=== PATIENT | male | born 1955 | race Hispanic/Latino ===

== ENCOUNTER 2016-12-27 05:49 | Inpatient (IN) | payer BC ==
--- NOTE | 2016-12-20 09:56 | Anesthesia Consultation ---
Anesthesia Consult and Med Hx Date of service: 12/20/16 - Airway Anesthetic Teeth Evaluation: Good ROM Head & Neck: Adequate Mental/Hyoid Distance: Adequate Mallampati Class: Class II Intubation Access Assessment: Probably Good - Pulmonary Exam CTA: Yes - Cardiac Exam Cardiac Exam: RRR - Pre-Operative Health Status ASA Pre-Surgery Classification: ASA3 Proposed Anesthetic Plan: General - Pulmonary Hx Smoking: Yes Hx Sleep Apnea: No ([facility] PRE SCREEN HIGH RISK) - Cardiovascular System Hx Hypertension: Yes Hx Peripheral Vascular Disease: Yes (on aspirin and plavix for blood clots. stopped since 12/13) - Central Nervous System Hx Back Pain: Yes - Endocrine Hx Non-Insulin Dependent Diabetes: Yes - Other Systems Hx Alcohol Use: No (ALCOHOL IN THE PAST) Hx Cancer: No
[2016-12-20 10:01] LABS: Basophils % (Auto) 0.7 % (0.0-1.8); Hematocrit 43.4 % (35.5-45.6); Hemoglobin 14.4 gm/dl (11.8-15.2); Mean Corpuscular HGB Conc 33 % (32-34); Mean Corpuscular Hemoglobin 32 pg (28-32); Mean Corpuscular Volume 95 fl (84-94); Platelet Count 248 K/mm3 (140-440); Red Blood Count 4.57 M/mm3 (3.65-5.03); Red Cell Distribution Width 13.9 % (13.2-15.2); White Blood Count 10.1 K/mm3 (4.5-11.0)
[2016-12-20 10:21] LABS: Alanine Aminotransferase 27 units/L (7-56); Albumin/Globulin Ratio 1.2 %; Alkaline Phosphatase 58 units/L (35-129); Anion Gap 20 mmol/L; Blood Urea Nitrogen 23 mg/dL (9-20); Calcium 9.1 mg/dL (8.4-10.2); Carbon Dioxide 22 mmol/L (22-30); Chloride 99.6 mmol/L (98-107); Glucose 89 mg/dL (75-100); Potassium 4.8 mmol/L (3.6-5.0); Sodium 137 mmol/L (137-145); Total Protein 7.3 g/dL (6.3-8.2)
[2016-12-20 10:28] LABS: INR 0.84 (0.87-1.13); Partial Thromboplastin Time 29.5 Sec. (24.2-36.6)
[2016-12-27] MEDS ORDERED: NEURONTIN PO NR (07:00)
[2016-12-27] MEDS ORDERED: PEPCID PO NR (07:00)
[2016-12-27] MEDS ORDERED: VERSED IV NR (07:00)
[2016-12-27] MEDS: NACL 0.9% 1000 ML 1,000 ML IV SCH ×3 (07:10→23:46)
[2016-12-27] MEDS ORDERED: DEPO-MEDROL ONE (07:21)
[2016-12-27] MEDS ORDERED: NACL 0.9% 250ML 250 ML ONE (07:22)
[2016-12-27] MEDS ORDERED: MARCAINE 0.5% 30 ML INFILTRATI ONE (07:22)
[2016-12-27] MEDS ORDERED: NACL P/F VIAL (10 ML) 10 ML ONE (07:22)
[2016-12-27] MEDS ORDERED: GELFOAM TP ONE ×3 (07:22→08:00)
[2016-12-27] MEDS ORDERED: THROMBIN (BOVINE) TP ONE ×3 (07:22→08:37)
[2016-12-27] MEDS ORDERED: BACITRACIN ONE (07:22)
[2016-12-27] MEDS ORDERED: XYLOCAINE 2%/ EPI 1:200,000 INFILTRATI ONE (07:27)
[2016-12-27] MEDS ORDERED: DILAUDID ONE ×2 (07:36→12:10)
[2016-12-27] MEDS ORDERED: DIPRIVAN 10 MG/ML IV ONE (07:36)
[2016-12-27] MEDS ORDERED: ZEMURON IV ONE (07:39)
[2016-12-27] MEDS ORDERED: ROBINUL ONE ×2 (07:39→09:54)
[2016-12-27] MEDS ORDERED: XYLOCAINE MPF 2% ONE (07:39)
--- NOTE | 2016-12-27 07:47 | Anesthesia Day of Surgery ---
Anesthesia Day of Surgery - Day of Surgery Patient Examined: Yes Patient H&P Reviewed: Yes Patient is NPO: Yes
[2016-12-27] MEDS ORDERED: NACL 0.9% 250ML IR ONE (08:00)
[2016-12-27] MEDS ORDERED: BACITRACIN IR ONE (08:00)
[2016-12-27] MEDS ORDERED: MARCAINE 0.5% INFILTRATI ONE (08:00)
[2016-12-27] MEDS ORDERED: XYLOCAINE 1%/ EPI 1:100,000 INFILTRATI ONE (08:00)
[2016-12-27] MEDS ORDERED: NACL 0.9% IR ONE (08:00)
[2016-12-27] MEDS ORDERED: ANCEF/STERILE WATER 2 GM/20 ML IV NR (08:01)
[2016-12-27] MEDS ORDERED: ANCEF ONE ×2 (08:32)
[2016-12-27] MEDS ORDERED: CALCIUM CHLORIDE IV ONE (08:37)
[2016-12-27] MEDS ORDERED: DECADRON ONE (08:40)
[2016-12-27] MEDS ORDERED: ZOFRAN ONE (08:40)
[2016-12-27] MEDS ORDERED: PROAIR IH ONE (08:56)
[2016-12-27] MEDS ORDERED: ANCEF/STERILE WATER 2 GM/20 ML 2 GM/20 ML SYRINGE IV SCH (09:15)
[2016-12-27] MEDS ORDERED: NACL 0.9% 1000 ML 1,000 ML ONE (09:19)
[2016-12-27] MEDS ORDERED: NEOSTIGMINE ONE (09:54)
[2016-12-27] MEDS ORDERED: NEO SYNEPHRINE ONE (09:57)
[2016-12-27] MEDS ORDERED: NACL 0.9% 100 ML ONE (09:57)
--- NOTE | 2016-12-27 10:31 | Operative Report ---
Operative Report Operative Report: DATE OF PROCEDURE: 12/27/2016 PREOPERATIVE DIAGNOSIS: Lumbar stenosis with neurogenic claudication POSTOPERATIVE DIAGNOSIS: Same OPERATIVE PROCEDURE: 1. L4 5 bilateral lumbar laminectomy for decompression of thecal sac 2. L4 5 facet arthrodesis using autograft and detox SURGEON: Jairon Ritter MD RIP/MOULD OPERATOR: Christianne COLE ANESTHESIA: General endotracheal anesthesia EBL: 100 mL INDICATIONS FOR PROCEDURE: This is a 61-year-old male who presented to the office with a chief complaint of bilateral leg and back pain. Pain radiated down the legs along the lateral aspect. Pain was worse with ambulation improved with rest and bending forward. Physical exam he was neurologically intact. MRI of the lumbar spine revealed lumbar stenosis at the L4 5 level due to facet hypertrophy and ligamentum flavum enfolding. FINDINGS: Significant bilateral facet joint hypertrophy and thickeneng of ligamentum flavum causing significant compression of the thecal sac. PROCEDURE: Patient was brought to the operating room and on his gurney underwent general endotracheal anesthesia without complication. After lines replaced as turned in the prone position and secured. The lower lumbar spine was then prepped and draped in sterile fashion. After appropriate timeout was taken skin was altered 1% lidocaine with epinephrine. Fluoroscopy was used to identify the appropriate level of the incision in the skin was opened using a 10 blade. The paraspinous muscles were reflected bilaterally using monopolar cautery. After retractors were placed and the wound and the L4 5 interspaces were identified. High-speed drill was used to create the initial laminotomy defect and the ligamentum flavum was divded and the thecal sac identified. Thecal sac was then decompressed removing the entire lamina of L4. Attention was turned to the contralateral side which was also decompressed. The facet joints were noted to be very mobile intraoperatively and field with ligament edematous tissue. This tissue was removed and the bone from the facet joint mixed with detox and platelet rich plasma was placed inside the facet joint for arthrodesis. This was to prevent a need for a fusion in the future. Hemostasis was obtained, Gelfoam pledgets soaked in Depo-Medrol were placed over the nerve roots. Our attention was turned to closing. Paraspinous muscles were reapproximated using 0 Vicryl for the muscle fascia and finally 4- 0 Monocryl for the skin. The lap sponge and needle count was correct at the end of the procedure, the patient tolerated the procedure well and was taken to the recovery room extubated and in good condition.
--- NOTE | 2016-12-27 10:51 | Post Anesthesia Evaluation ---
- Post Anesthesia Evaluation Patient Participated: Yes Airway Patent: Yes Stable Respiratory Function: Yes Nausea/Vomiting: No Temp > 96.8F: Yes Pain Manageable: Yes Adequeate Hydration: Yes Anesthesia Complications: No Block Receding Appropriately: Not Applicable Patient on Ventilator: No
[2016-12-27] MEDS ORDERED: PERCOCET 5/325 ONE (11:24)
[2016-12-27] MEDS ORDERED: FLEXERIL PO PRN (11:30)
[2016-12-27] MEDS ORDERED: AMBIEN PO PRN (11:30)
[2016-12-27] MEDS ORDERED: CATAPRES PO PRN (11:30)
[2016-12-27] MEDS ORDERED: BENADRYL PO PRN (11:30)
[2016-12-27] MEDS ORDERED: CEPACOL X STRENGTH MM PRN (11:30)
[2016-12-27] MEDS ORDERED: NARCAN 0.4 MG/1 ML IV PRN (11:30)
[2016-12-27] MEDS ORDERED: NORCO 5/325 PO PRN (11:30)
[2016-12-27] MEDS ORDERED: D50W (25GM) Syringe IV PRN (11:30)
[2016-12-27] MEDS ORDERED: TYLENOL PO PRN (11:30)
[2016-12-27] MEDS ORDERED: ZOFRAN IV PRN (11:30)
[2016-12-27] MEDS ORDERED: REGLAN IV PRN (11:30)
[2016-12-27] MEDS ORDERED: PHENERGAN PR PRN (11:30)
[2016-12-27] MEDS: PERCOCET 5/325 PO PRN (11:36)
[2016-12-27] MEDS: DILAUDID IV PRN ×4 (12:08→18:13)
--- NOTE | 2016-12-27 12:31 | Admit Criteria Form ---
Admission Criteria Documentation: AMBULATORY SURGERY EXCEPTION CRITERIA Ambulatory Surgery Exception Criteria ( Place 'X' for any and all applicable criteria): Surgery or procedure performed on ambulatory basis may require inpatient stay for[A] ANY ONE of the following(1)(2)(3)(4)(5)(6)(7)(8)(9): [X] I. A preoperative situation, condition, or finding that warrants inpatient stay as indicated by ANY ONE of the following: [] a) Inpatient care needed because of severity of a disease or condition rather than the surgery (eg, severe cardiac or respiratory disease, severe infection) (15) (16 ) (17) (18) [] b) Emergent procedure (eg, angioplasty for acute ischemia)(19) [] c) Complex surgical approach or situation as indicated by ANY ONE of the following(3): [] i) Open approach needed instead of usual endoscopic, transcatheter, or other less invasive procedure [] ii) Difficult approach because of previous operation [] iii) Airway monitoring required after open neck procedures(20)(21) [] iv) Large mass requiring unusually extensive dissection [] v) Additional complicating feature requiring inpatient care (eg, drain management)(22(23): [X] d) Major surgery in a pt with high anesthetic risk as indicated by ANY ONE of the following (2)(3)(5)(7)(8): [X] i) ASA risk class III or higher (severe systemic disease impairing function) [D] [] ii) Advanced age (eg, older than 85 years)(14)(24) [] iii) Symptomatic heart failure(25) [] iv) Symptomatic asthma or COPD(8)(21) [] v) Morbid obesity with hemodynamic or respiratory problems(20)( 21)(26)(27) [] vi) Obstructive sleep apnea(20)(21) [] vii) Former premature infants who are younger than 60 weeks [] viii) High risk for severe postoperative abnormalities (eg, severe postoperative hypocalcemia after parathyroidectomy for severe hyperparathyroidism)(27)( 28) [] ix) Unstable angina(25) [] e) Drug-related risk requiring inpatient stay as indicated by ANY ONE of the following(5)(10)(14)(32)(33) [] i) Procedure requires discontinuing drugs or other therapy (eg , antiarrhythmic medication, antiseizure medication), which necessitates inpatient observation or treatment.(18)(31) [] ii) Major surgery and high risk drug use as indicated by ANY ONE of the following: [] 1) Active abuse of cocaine or similar drug [] 2) Monoamine oxidase inhibitor use [] 3) Other drug identified as posing risk [] f) Inadequate outpatient care situation as indicated by ANY ONE of the following(5)(10)(14)(32)(33) [] i) Patient lives remote from medical facility and procedure has urgent complication potential, and temporary nearby residence cannot be arranged [] ii) Patient will have postprocedure incapacitation and inadequate assistance at home, or alternative level of care cannot be arranged. [] iii) Patient will have long general anesthesia or procedure side effect resolution time, and competent person to stay with patient on first postoperative night at home or alternative level of care cannot be arranged. []iv) Other inadequate outpatient situation that cannot be handled by other means [] II. A perioperative event, condition, or finding that warrants inpatient stay as indicated by ANY ONE of the following (1)(2)(3): [] a) Inadequate physiologic recovery: cardiovascular, respiratory, or hemodynamic status not normal or near preoperative baseline(18) [] b) Hemodynamic instability [] c) Patient not alert with near normal or baseline mental status [] d) Temperature not normal or as expected and not appropriate for outpatient treatment of condition [] e) Ambulatory or appropriate activity level status not yet achieved post procedure [E](34)(35)(36) [] f) Operative site not appropriate (eg, unexpected or excessive drainage or bleeding) [] g) Postoperative effects not resolved or adequately managed (eg, significant pain or vomiting not appropriate for outpatient or next level of care)(10)(12) [] h) Complicating features requiring inpatient care as indicated by ANY ONE of the following(37): [] i) Severe complications of procedure (eg, bowel injury, airway compromise, vascular injury,severe hemorrhage) [] ii) Extensive (eg, dissection far beyond usual scope of procedure ) or prolonged (eg, 120 minutes beyond usual) surgery needed requiring inpatient postoperative care [] iii) Conversion to an open or complex procedure that requires inpatient care (eg, open vs laparoscopic cholecystectomy, abdominal vs vaginal hysterectomy)(38) [] iv) Comorbid condition or test result identified during or post procedure that requires inpatient care (7) [] v) Malignant hyperthermia(30) [] vi) Other complicating feature requiring inpatient care(22)(23) Inpatient stay may be needed until ALL of the following are present (1)(2)(3)(4) (5)(6)(10)(14)(33)(40): []a) Physiologic recovery: cardiovascular, respiratory, and hemodynamic status normal or near preoperative baseline []b) Hemodynamic stability []c) Patient alert, with near normal or baseline mental status []d) Temperature appropriate: patient afebrile or temperature appropriate for outpt treatment of condition []e) Activity level appropriate: ambulatory or appropriate activity level post procedure []f) Operative site appropriate as indicated by ALL of the following: []i) Site dry or with expected drainage []ii) Any blood noted is as expected for procedure. []g) Postoperative effects resolved or managed as indicated by ALL of the following: []i) Pain management appropriate for outpatient (or next level of) care(10) []ii) Minimal nausea and vomiting: if present, successfully treated with oral medication(12) []iii) Headache, dizziness, or drowsiness (if present) are mild. []h) Voiding status acceptable as indicated by ANY ONE of the following: []i) Voiding spontaneously []ii) No voiding but instructions given for follow-up in 6 to 8 hours []iii) Urinary catheter in place, and instructions given for follow-up []i) Complicating features requiring inpatient care manageable at a lower level of care(37) []j) Comorbid conditions manageable at a lower level of care(37) The original [employer] content created by [employer] has been revised. The portions of the content which have been revised are identified through the use of italic text or in bold, and [facility] [employer] has neither reviewed nor approved the modified material. All other unmodified content is copyright [employer]. Please see references footnoted in the original [employer] edition 2016 Admission Criteria Met: Yes
--- NOTE | 2016-12-27 13:58 | XRay Report ---
SPINE 1 VIEW INDICATION: Spinal stenosis, L4-L5 lumbar laminectomy. COMPARISON: None similar at this institution. FINDINGS: Two lateral views of the lower lumbar spine submitted. Initial political advisor view from 8:32 AM, 12/27/2016 demonstrates a pointer needle likely behind L4-L5 disc level. Similar second radiograph from 8:57 AM demonstrates retractors at the same level posteriorly. CONCLUSION: Intraoperative fluoroscopic assistance provided, as described. Thank you for the opportunity to participate in this patient's care.
[2016-12-27] MEDS ORDERED: GLUCOTROL PO SCH (14:00)
[2016-12-27] MEDS: ANCEF/NS 1 GM/50 ML 1 GM/50 ML BAG IV SCH ×2 (15:16→23:45)
[2016-12-27] MEDS ORDERED: GLUCOPHAGE PO SCH (17:00)
--- NOTE | 2016-12-27 18:06 | Consultation ---
History of Present Illness - Reason for Consult Consult date: 12/27/16 Requesting physician: MARY RAZA - History of Present Illness 61 YO Male with Lumbar Stenosis, DM, HTN, Metabolic Syndrome admitted for surgical intervention. Consult placed for medical management. Pt seen and evaluated. Pt denies fever, chills, CP, Palpitaiton, NVD, shortness of breath. Pt resting comfortable postoperatively. Pt pain is controlled and patient is comfortable. Past History Past Medical History: diabetes, hypertension Past Surgical History: Other (lumbar laminectomy) Social history: , lives with family. denies: smoking, alcohol abuse, prescription drug abuse Family history: diabetes, hypertension Medications and Allergies Allergies Allergy/AdvReac Type Severity Reaction Status Date / Time No Known Allergies Allergy Verified 12/16/16 15:07 Home Medications Medication Instructions Recorded Confirmed Last Taken Type Aspirin [Adult Low Dose Aspirin EC] 81 mg PO DAILY 12/16/16 12/27/16 12/13/16 History Bupropion HCl [Wellbutrin XL] 300 mg PO QAM 12/16/16 12/27/16 12/26/16 History Clopidogrel Bisulfate [Clopidogrel] 75 mg PO DAILY 12/16/16 12/27/16 12/13/16 History Escitalopram [Lexapro] 10 mg PO DAILY 12/16/16 12/27/16 12/26/16 History Lisinopril/Hydrochlorothiazide 1 tab PO DAILY 12/16/16 12/27/16 12/27/16 History [Lisinopril-Hctz 20-12.5 mg Tab] Metformin HCl [Glucophage] 1,000 mg PO BID 12/16/16 12/27/16 12/26/16 History Pravastatin Sodium [Pravastatin 40 mg PO DAILY 12/16/16 12/27/16 12/26/16 History Sodium] glipiZIDE [Glucotrol] 10 mg PO TID 12/16/16 12/27/16 12/25/16 History Active Meds: Active Medications Acetaminophen (Tylenol) 650 mg PO Q6H PRN PRN Reason: Pain MILD(1-3)/Fever> 100.5/LUCIA Acetaminophen/Hydrocodone Bitart ([place] 5/325) 1 each PO Q6H PRN PRN Reason: Pain, Moderate (4-6) Benzocaine/Menthol (Cepacol X Strength) 1 each MM Q1H PRN PRN Reason: Sore Throat Bupropion HCl (Wellbutrin Xl) 300 mg PO QAM RADHA Clonidine HCl (Catapres) 0.1 mg PO Q4H PRN PRN Reason: SBP>165 Cyclobenzaprine HCl (Flexeril) 10 mg PO Q8H PRN PRN Reason: Muscle Spasm Dextrose (D50w (25gm)) 50 ml IV PRN PRN PRN Reason: Hypoglycemia Diphenhydramine HCl (Benadryl) 25 mg PO Q6H PRN PRN Reason: Itching Docusate Sodium (Colace) 100 mg PO BID [facility] Escitalopram Oxalate (Lexapro) 10 mg PO DAILY RADHA Famotidine (Pepcid) 20 mg PO BID RADHA Glipizide (Glucotrol) 10 mg PO TID RADHA Hydrochlorothiazide (Hctz) 12.5 mg PO QDAY [facility] Hydromorphone HCl (Dilaudid) 0.5 mg IV Q3H PRN PRN Reason: Pain , Severe (7-10) Last Admin: 12/27/16 13:32 Dose: 0.5 mg Sodium Chloride (Nacl 0.9% 1000 Ml) 1,000 mls @ 100 mls/hr IV DIRECT [facility] Stop: 12/27/16 23:59 Last Admin: 12/27/16 07:10 Dose: 100 mls/hr Cefazolin Sodium (Ancef/Ns 1 Gm/50 Ml) 1 gm in 50 mls @ 100 mls/hr IV Q8H [facility] Stop: 12/28/16 00:29 Last Admin: 12/27/16 15:16 Dose: 100 mls/hr Sodium Chloride (Nacl 0.9% 1000 Ml) 1,000 mls @ 75 mls/hr IV DIRECT [facility] Insulin Human Regular (Novolin R) 0 units SUB-Q ACHS RADHA PRN Reason: Protocol Last Admin: 12/27/16 16:48 Dose: Not Given Lisinopril (Zestril) 20 mg PO QDAY [facility] Metformin HCl (Glucophage) 1,000 mg PO BIDDIAB [facility] Last Admin: 12/27/16 16:48 Dose: 1,000 mg Metoclopramide HCl (Reglan) 10 mg IV Q6H PRN PRN Reason: Nausea And Vomiting Morphine Sulfate (Morphine) 4 mg IV Q4H PRN PRN Reason: Pain , Severe (7-10) Naloxone HCl (Narcan 0.4 Mg/1 Ml) 0.1 mg IV Q2MIN PRN PRN Reason: Res Rate </= 8 or 02 SAT < 92% Ondansetron HCl (Zofran) 4 mg IV Q8H PRN PRN Reason: Nausea And Vomiting Oxycodone/Acetaminophen (Percocet 5/325) 1 tab PO Q6H PRN PRN Reason: Pain, Moderate (4-6) Last Admin: 12/27/16 11:36 Dose: 1 tab Pneumococcal Polyvalent Vaccine (Pneumovax 23) 0.5 ml IM .ONCE ONE Stop: 12/28/16 12:01 Promethazine HCl (Phenergan) 25 mg DC Q6H PRN PRN Reason: Nausea And Vomiting Senna (Senokot) 8.6 mg PO BID RADHA Simvastatin (Zocor) 20 mg PO QHS RADHA Zolpidem Tartrate (Ambien) 5 mg PO QHS PRN PRN Reason: Sleep Review of Systems All systems: negative Constitutional: no weight loss, no weight gain, no fever Ears, nose, mouth and throat: no ear pain, no ear discharge, no tinnitis Cardiovascular: no chest pain, no orthopnea, no palpitations Respiratory: no cough, no cough with sputum, no excessive sputum Gastrointestinal: no nausea, no vomiting, no diarrhea Genitourinary Male: no flank pain, no discharge, no urinary frequency Rectal: no pain, no incontinence, no bleeding Musculoskeletal: no neck stiffness, no neck pain, no shooting arm pain Integumentary: no rash, no pruritis, no redness Neurological: no parathesias, no numbness, no tingling Psychiatric: no memory loss, no change in sleep habits, no sleep disturbances Endocrine: no cold intolerance, no heat intolerance, no polyphagia Hematologic/Lymphatic: no easy bruising, no easy bleeding Allergic/Immunologic: no urticaria, no allergic rhinitis Exam - Constitutional Vitals: Temp Pulse Resp BP Pulse Ox 98.1 F 89 21 117/61 96 12/27/16 12:50 12/27/16 12:50 12/27/16 14:02 12/27/16 12:50 12/27/16 14:28 General appearance: Present: no acute distress, well-nourished - EENT Eyes: Present: PERRL ENT: hearing intact, clear oral mucosa - Neck Neck: Present: supple, normal ROM - Respiratory Respiratory effort: normal Respiratory: bilateral: CTA - Cardiovascular Heart Sounds: Present: S1 & S2. Absent: rub, click - Extremities Extremities: pulses symmetrical, No edema Peripheral Pulses: within normal limits - Abdominal General gastrointestinal: Present: soft, non-tender, non-distended, normal bowel sounds Male genitourinary: Present: normal - Integumentary Integumentary: Present: clear, warm, dry - Musculoskeletal Musculoskeletal: gait normal, strength equal bilaterally - Psychiatric Psychiatric: appropriate mood/affect, intact judgment & insight - Neurologic Neurologic: CNII-XII intact, moves all extremities Results - Labs CBC & Chem 7: 12/20/16 09:30 12/20/16 09:30 Labs: Abnormal lab results 12/27/16 12/27/16 12/27/16 Range/Units 07:06 10:37 14:46 POC Glucose 169 H 196 H 161 H (70-105) Assessment and Plan - Patient Problems (1) Lumbar stenosis with neurogenic claudication Current Visit: Yes Status: Acute Plan to address problem: S/P Lumbar laminectomy, supportive care, (2) HTN (hypertension) Current Visit: Yes Status: Acute Qualifiers: Hypertension type: H Plan to address problem: monitor BP Q shift, resume home medication. (3) Diabetes Current Visit: Yes Status: Acute Qualifiers: Diabetes mellitus type: D Diabetes mellitus complication status: D Diabetes mellitus complication detail: D Diabetic retinopathy severity: D Proliferative retinopathy type: P Diabetes mellitus macular edema: D Diabetes mellitus watermelon inspector insulin use: D Laterality: L Chronic kidney disease stage: C Plan to address problem: ADA diet, insulin, accu check, (4) Metabolic syndrome Current Visit: Yes Status: Acute Plan to address problem: Balanced diet, increased physical activity, 1500 calorie daily diet upon discharge. (5) DVT prophylaxis Current Visit: Yes Status: Acute
[2016-12-27] MEDS ORDERED: NON-FORMULARY (Metformin Hcl [Glucophage] 1,000 MG) PO SCH (22:00)
[2016-12-27] MEDS: COLACE PO SCH (23:06)
[2016-12-27] MEDS: PEPCID PO SCH (23:07)
[2016-12-27] MEDS: ZOCOR PO SCH (23:08)
[2016-12-27] MEDS: SENOKOT PO SCH (23:08)
[2016-12-27] MEDS: MORPHINE IV PRN (23:44)
[2016-12-28] MEDS: MORPHINE IV PRN ×2 (06:43→12:40)
--- NOTE | 2016-12-28 08:23 | Progress Note ---
Assessment and Plan Assessment and plan: We'll have been consulted for the management of his medical condition Diabetes mellitus type 2 - On sliding-scale insulin - Accu-Chek, ADA - Blood glucose is in the target range Hypertension - Controlled - Continue home medications Metabolic syndrome - Advised about diet and exercise as an outpatient Spinal stenosis status post laminectomy - Management by neurosurgery Thank you for the consult, we will continue to monitor the patient along. History Interval history: Status post laminectomy Hospitalist Physical - Physical exam Narrative exam: Not in cardiopulmonary distress. The patient appeared well nourished and normally developed. Vital signs as documented. Head exam is unremarkable. No scleral icterus . Neck is without jugular venous distension, thyromegaly, or carotid bruits. Lungs are clear to auscultation. Cardiac exam reveals regular rate and Rhythm. First and second heart sounds normal. No murmurs, rubs or gallops. Abdominal exam reveals normal bowel sounds, no masses, no organomegaly and no aortic enlargement. Extremities are nonedematous and both femoral and pedal pulses are normal. 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 No focal weakness. - Constitutional Vitals: Temp Pulse Resp BP Pulse Ox 98.8 F 92 H 18 108/71 98 12/28/16 05:00 12/28/16 05:00 12/28/16 05:00 12/28/16 05:00 12/28/16 01:29 General appearance: Present: no acute distress, well-nourished Results - Labs CBC & Chem 7: 12/20/16 09:30 12/20/16 09:30 Labs: Laboratory Last Values WBC 10.1 K/mm3 (4.5-11.0) 12/20/16 09:30 RBC 4.57 M/mm3 (3.65-5.03) 12/20/16 09:30 Hgb 14.4 gm/dl (11.8-15.2) 12/20/16 09:30 Hct 43.4 % (35.5-45.6) 12/20/16 09:30 MCV 95 fl (84-94) H 12/20/16 09:30 MCH 32 pg (28-32) 12/20/16 09:30 MCHC 33 % (32-34) 12/20/16 09:30 RDW 13.9 % (13.2-15.2) 12/20/16 09:30 Plt Count 248 K/mm3 (140-440) 12/20/16 09:30 Lymph % (Auto) 29.1 % (13.4-35.0) 12/20/16 09:30 [place] % (Auto) 8.8 % (0.0-7.3) H 12/20/16 09:30 Eos % (Auto) 2.0 % (0.0-4.3) 12/20/16 09:30 Baso % (Auto) 0.7 % (0.0-1.8) 12/20/16 09:30 Lymph # 3.0 K/mm3 (1.2-5.4) 12/20/16 09:30 [place] # 0.9 K/mm3 (0.0-0.8) H 12/20/16 09:30 Eos # 0.2 K/mm3 (0.0-0.4) 12/20/16 09:30 Baso # 0.1 K/mm3 (0.0-0.1) 12/20/16 09:30 Seg Neutrophils % 59.4 % (40.0-70.0) 12/20/16 09:30 Seg Neutrophils # 6.0 K/mm3 (1.8-7.7) 12/20/16 09:30 PT 11.9 Sec. (12.2-14.9) L 12/20/16 09:30 INR 0.84 (0.87-1.13) L 12/20/16 09:30 APTT 29.5 Sec. (24.2-36.6) 12/20/16 09:30 Sodium 137 mmol/L (137-145) 12/20/16 09:30 Potassium 4.8 mmol/L (3.6-5.0) 12/20/16 09:30 Chloride 99.6 mmol/L (98-107) 12/20/16 09:30 Carbon Dioxide 22 mmol/L (22-30) 12/20/16 09:30 Anion Gap 20 mmol/L 12/20/16 09:30 BUN 23 mg/dL (9-20) H 12/20/16 09:30 Creatinine 1.0 mg/dL (0.8-1.5) 12/20/16 09:30 Estimated GFR > 60 ml/min 08/08/17 09:30 BUN/Creatinine Ratio 23.00 % 12/20/16 09:30 Glucose 89 mg/dL (75-100) 12/20/16 09:30 POC Glucose 161 (70-105) H 12/27/16 14:46 Calcium 9.1 mg/dL (8.4-10.2) 12/20/16 09:30 Total Bilirubin 0.20 mg/dL (0.1-1.2) 12/20/16 09:30 AST 21 units/L (5-40) 12/20/16 09:30 ALT 27 units/L (7-56) 12/20/16 09:30 Alkaline Phosphatase 58 units/L (35-129) 12/20/16 09:30 Total Protein 7.3 g/dL (6.3-8.2) 12/20/16 09:30 Albumin 4.0 g/dL (3.9-5) 12/20/16 09:30 Albumin/Globulin Ratio 1.2 % 12/20/16 09:30 Blood Type A POSITIVE 12/27/16 06:50 Antibody Screen Negative 12/27/16 06:50
[2016-12-28] MEDS ORDERED: NON-FORMULARY (Lisinopril/Hydrochlorothiazide [Lisinopril-Hctz 20-12.5 Mg Tab] 1 TAB) PO SCH (10:00)
[2016-12-28] MEDS ORDERED: NON-FORMULARY (Bupropion Hcl [Wellbutrin Xl] 300 MG) PO SCH (10:00)
[2016-12-28] MEDS ORDERED: PRAVASTATIN SODIUM 40 MG PO SCH (10:00)
[2016-12-28] MEDS ORDERED: PNEUMOVAX 23 IM ONE (12:00)
[2016-12-28] MEDS: LEXAPRO PO SCH (12:24)
[2016-12-28] MEDS: HCTZ PO SCH (12:24)
[2016-12-28] MEDS: COLACE PO SCH ×2 (12:24→21:47)
[2016-12-28] MEDS: WELLBUTRIN XL PO SCH (12:25)
[2016-12-28] MEDS: SENOKOT PO SCH ×2 (12:25→21:47)
[2016-12-28] MEDS: ZESTRIL PO SCH (12:25)
[2016-12-28] MEDS: PEPCID PO SCH ×2 (12:25→21:47)
[2016-12-28] MEDS: NACL 0.9% 1000 ML 1,000 ML IV SCH (12:40)
--- NOTE | 2016-12-28 13:08 | Progress Note ---
Assessment and Plan - Patient Problems (1) Lumbar stenosis with neurogenic claudication Current Visit: Yes Status: Resolved Plan to address problem: Requested patient take oral pain meds to better control pain. Will go home tomorrow with home health, walker and elevated toilet seat. Subjective Date of service: 12/28/16 Interval history: Complains of pain in lower back. Responds to morphine. Objective - Vital Sign Vital Signs - 12hr 12/28/16 12/28/16 12/28/16 01:29 05:00 08:00 Temperature 98.8 F 98.8 F 98.5 F Pulse Rate 89 92 H 79 Respiratory 18 18 18 Rate Blood Pressure 115/70 108/71 123/73 O2 Sat by Pulse 98 98 Oximetry 12/28/16 12:25 Temperature Pulse Rate 80 Respiratory Rate Blood Pressure 132/82 O2 Sat by Pulse Oximetry - General Apperance Constitutional: comfortable - Neurologic Incision: clean, dry, intact - Laboratory Findings CBC and BMP: 12/20/16 09:30 12/20/16 09:30 Abnormal Lab Findings: Abnormal Labs 12/20/16 12/20/16 12/20/16 09:30 09:30 09:30 MCV 95 H [place] % (Auto) 8.8 H [place] # 0.9 H PT 11.9 L INR 0.84 L BUN 23 H POC Glucose 12/27/16 12/27/16 12/27/16 07:06 10:37 14:46 MCV [place] % (Auto) [place] # PT INR BUN POC Glucose 169 H 196 H 161 H
--- NOTE | 2016-12-28 13:12 | Short Stay Summary ---
Short Stay Documentation Date of service: 12/29/16 - History H&P: obtained from office Past Medical History: diabetes, hypertension Past Surgical History: Other (lumbar laminectomy) Social history: , lives with family, no smoking, no alcohol abuse, no prescription drug abuse - Allergies and Medications Current Medications: Allergies No Known Allergies Allergy (Verified 12/16/16 15:07) Home Medications Medication Instructions Recorded Confirmed Last Taken Type Aspirin [Adult Low Dose Aspirin EC] 81 mg PO DAILY 12/16/16 12/27/16 12/13/16 History Bupropion HCl [Wellbutrin XL] 300 mg PO QAM 12/16/16 12/27/16 12/26/16 History Clopidogrel Bisulfate [Clopidogrel] 75 mg PO DAILY 12/16/16 12/27/16 12/13/16 History Escitalopram [Lexapro] 10 mg PO DAILY 12/16/16 12/27/16 12/26/16 History Lisinopril/Hydrochlorothiazide 1 tab PO DAILY 12/16/16 12/27/16 12/27/16 History [Lisinopril-Hctz 20-12.5 mg Tab] Metformin HCl [Glucophage] 1,000 mg PO BID 12/16/16 12/27/16 12/26/16 History Pravastatin Sodium [Pravastatin 40 mg PO DAILY 12/16/16 12/27/16 12/26/16 History Sodium] glipiZIDE [Glucotrol] 10 mg PO TID 12/16/16 12/27/16 12/25/16 History Cyclobenzaprine [Flexeril] 10 mg PO TID PRN #60 tablet 12/28/16 Unknown Rx oxyCODONE /ACETAMINOPHEN [Percocet 1 tab PO Q6HR PRN #60 tablet 12/28/16 Unknown Rx 5/325] Active Medications Acetaminophen (Tylenol) 650 mg PO Q6H PRN PRN Reason: Pain MILD(1-3)/Fever> 100.5/LUCIA Acetaminophen/Hydrocodone Bitart ([place] 5/325) 1 each PO Q6H PRN PRN Reason: Pain, Moderate (4-6) Benzocaine/Menthol (Cepacol X Strength) 1 each MM Q1H PRN PRN Reason: Sore Throat Bupropion HCl (Wellbutrin Xl) [facility] Last Admin: 12/28/16 12:25 Dose: 300 mg Clonidine HCl (Catapres) 0.1 mg PO Q4H PRN PRN Reason: SBP>165 Cyclobenzaprine HCl (Flexeril) 10 mg PO Q8H PRN PRN Reason: Muscle Spasm Dextrose (D50w (25gm)) 50 ml IV PRN PRN PRN Reason: Hypoglycemia Diphenhydramine HCl (Benadryl) 25 mg PO Q6H PRN PRN Reason: Itching Docusate Sodium (Colace) 100 mg PO BID [facility] Last Admin: 12/28/16 12:24 Dose: 100 mg Escitalopram Oxalate (Lexapro) 10 mg PO DAILY [facility] [place] Last Admin: 12/28/16 12:24 Dose: 10 mg Famotidine (Pepcid) 20 mg PO BID [facility] [place] Last Admin: 12/28/16 12:25 Dose: 20 mg Hydrochlorothiazide (Hctz) 12.5 mg PO QDAY [facility] Last Admin: 12/28/16 12:24 Dose: 12.5 mg Hydromorphone HCl (Dilaudid) 0.5 mg IV Q3H PRN PRN Reason: Pain , Severe (7-10) Last Admin: 12/27/16 18:13 Dose: 0.5 mg Sodium Chloride (Nacl 0.9% 1000 Ml) 1,000 mls @ 75 mls/hr IV DIRECT [facility] Last Admin: 12/28/16 12:40 Dose: 75 mls/hr Insulin Human Regular (Novolin R) 0 units SUB-Q ACHS [facility] PRN Reason: Protocol Last Admin: 12/28/16 08:00 Dose: Not Given Lisinopril (Zestril) 20 mg PO QDAY [facility] Last Admin: 12/28/16 12:25 Dose: 20 mg Metoclopramide HCl (Reglan) 10 mg IV Q6H PRN PRN Reason: Nausea And Vomiting Morphine Sulfate (Morphine) 4 mg IV Q4H PRN PRN Reason: Pain , Severe (7-10) Last Admin: 12/28/16 12:40 Dose: 4 mg Naloxone HCl (Narcan 0.4 Mg/1 Ml) 0.1 mg IV Q2MIN PRN PRN Reason: Res Rate </= 8 or 02 SAT < 92% Ondansetron HCl (Zofran) 4 mg IV Q8H PRN PRN Reason: Nausea And Vomiting Oxycodone/Acetaminophen (Percocet 5/325) 1 tab PO Q6H PRN PRN Reason: Pain, Moderate (4-6) Last Admin: 12/27/16 11:36 Dose: 1 tab Promethazine HCl (Phenergan) 25 mg TN Q6H PRN PRN Reason: Nausea And Vomiting Senna (Senokot) 8.6 mg PO BID [facility] Last Admin: 12/28/16 12:25 Dose: 8.6 mg Simvastatin (Zocor) 20 mg PO QHS [facility] Last Admin: 12/27/16 23:08 Dose: 20 mg Zolpidem Tartrate (Ambien) 5 mg PO QHS PRN PRN Reason: Sleep Last Admin: 12/27/16 23:44 Dose: 5 mg - Physical exam Extremities: pulses symmetrical, No edema - Disposition Condition at discharge: Good Disposition: [id number]-01 TO HOME OR SELFCARE - Discharge Diagnoses (1) Lumbar stenosis with neurogenic claudication Status: Resolved Short Stay Discharge Plan Activity: advance as tolerated Weight Bearing Status: Weight Bear as Tolerated Diet: low carbohydrate Wound: open to air, remove dressing Durable Medical Equipment Needed Upon Discharge: Walker-[employer]ling, Bedside commode -elevated Follow up with: ASIYA LEMUS [Other] - 7 Days Prescriptions: Cyclobenzaprine [Flexeril] 10 mg PO TID PRN #60 tablet PRN Reason: Muscle Spasm oxyCODONE /ACETAMINOPHEN [Percocet 5/325] 1 tab PO Q6HR PRN #60 tablet PRN Reason: Pain Other Discharge Orders: Bedside Commode- Elevator (Amb) Location: Determined By Patient [facility] (Amb) Location: Determined By Patient
[2016-12-28] MEDS: PERCOCET 5/325 PO PRN (17:37)
[2016-12-28] MEDS: ZOCOR PO SCH (21:47)
[2016-12-29] MEDS: PERCOCET 5/325 PO PRN ×2 (00:05→06:21)
[2016-12-29] MEDS: NACL 0.9% 1000 ML 1,000 ML IV SCH (00:45)
[2016-12-29] MEDS: HCTZ PO SCH (09:25)
[2016-12-29] MEDS: ZESTRIL PO SCH (09:25)
[2016-12-29] MEDS: LEXAPRO PO SCH (09:26)
[2016-12-29] MEDS: COLACE PO SCH (09:26)
[2016-12-29] MEDS: SENOKOT PO SCH (09:26)
[2016-12-29] MEDS: PEPCID PO SCH (09:27)
[2016-12-29] MEDS: WELLBUTRIN XL PO SCH (11:57)
[2016-12-29 17:29] VITALS: BP 126/76
== END 2016-12-29 17:10 | disposition home health service (06) | DRG 460 ==
LOC: OR 05:49 → 3A 10:12 → 2B-SURG 12:04
PROVIDERS: ADMIT Neurological Surgery; ATTEND Neurological Surgery
PROC: 0SG0071 Fusion of Lumbar Vertebral Joint with Autologous Tissue Substitute, Posterior Approach, Posterior Column, Open Approach (ICD-10-PCS; principal; 2016-12-27)
PROC: 01NB0ZZ Release Lumbar Nerve, Open Approach (ICD-10-PCS; 2016-12-27)
DX: M48.06 Spinal stenosis, lumbar region (principal); E88.81 Metabolic syndrome and other insulin resistance; Z87.891 Personal history of nicotine dependence; E11.51 Type 2 diabetes mellitus with diabetic peripheral angiopathy without gangrene; Z83.3 Family history of diabetes mellitus; Z82.49 Family history of ischemic heart disease and other diseases of the circulatory system; Z79.899 Other long term (current) drug therapy
CPT/HCPCS: 36415; 72020; 80053; 82962; 85025; 85610; 85730; 86850; 86900; 86901; 90732; A4649; J0690; J1030; J1100; J1170; J1815; J2250; J2270; J2370; J2405; J2704; J2710; J7030; J7050